=== PATIENT | female | born 1940 | race Caucasian/White ===

== ENCOUNTER → 2017-08-11 | Outpatient (CLI) | payer MEDICARE | END | disposition home or self-care (01) | LOC: GMA 11:30 | PROVIDERS: ATTEND Nurse Practitioner Family | DX: E78.5 Hyperlipidemia, unspecified (principal) ==

== ENCOUNTER → 2018-10-27 | Outpatient (CLI) | payer MEDICARE | LOC: GMAHI 10:53 | PROVIDERS: ATTEND Nurse Practitioner Family | DX: G93.3 Postviral and related fatigue syndromes (principal) ==

== ENCOUNTER → 2019-11-16 | Outpatient (CLI) | payer MEDICARE | LOC: GMAL 17:24 | PROVIDERS: ATTEND Family Medicine | DX: E53.8 Deficiency of other specified B group vitamins (principal); I10 Essential (primary) hypertension; E55.9 Vitamin D deficiency, unspecified; R53.82 Chronic fatigue, unspecified; E78.5 Hyperlipidemia, unspecified ==

== ENCOUNTER → 2020-05-11 | Outpatient (CLI) | payer MEDICARE | LOC: GMA 15:29 | PROVIDERS: ATTEND Family Medicine | DX: R10.84 Generalized abdominal pain (principal) ==

== ENCOUNTER → 2020-11-13 | Outpatient (CLI) | payer MEDICARE | LOC: GMAL 11:11 | PROVIDERS: ATTEND Family Medicine | DX: E53.8 Deficiency of other specified B group vitamins (principal); E55.9 Vitamin D deficiency, unspecified; R53.82 Chronic fatigue, unspecified; I10 Essential (primary) hypertension; E78.5 Hyperlipidemia, unspecified ==